=== PATIENT | male | born 1980 | race Caucasian/White ===

== ENCOUNTER 2016-04-14 20:48 | Emergency (ER) | payer BC ==
[2016-04-14 22:00] LABS: ABSOLUTE NEUTROPHIL COUNT 4.2 K/mm3 (1.8-7.7); BASO # 0.1 K/mm3 (0.0-0.2); BASO % 0.6 % (0.2-1.0); EOS # 0.3 (0.0-0.5); EOS % 3.9 % (0.9-2.9); HEMATOCRIT 47.6 % (32.0-52.0); HEMOGLOBIN 16.2 gm/l (14.0-18.0); IMM NEUT # 0.1 K/mm3 (0-0.2); IMM NEUT% 0.6 % (0-1); LYMPH # 3.5 (1.0-4.8); LYMPH % 39.7 % (15-45); MEAN CELL VOLUME 91.2 fl (80.0-94.0); MEAN PLATELET VOLUME 8.5 fl (7.4-10.4); MONO # 0.6 (0.0-0.8); MONO % 7.3 % (4-12); NEUT % 47.9 % (43-75); PLATELET COUNT 259 K/mm3 (130-400); RED CELL DISTRIBUTION WIDTH 12.6 % (11.5-14.5)
[2016-04-14 22:13] LABS: ACETAMINOPHEN < 10 ug/ml; ALB/GLOB RATIO 1.5 (>1.0); ALT/SGPT 28 U/L (7-52); BLOOD UREA NITROGEN 13 mg/dL (7-25); BUN/CREATININE RATIO 16 (6-20); CALCIUM 8.7 mg/dL (8.6-10.3); GLOMERULAR FILTRATION RATE 109 mL/min (60-107)
[2016-04-14 22:35] LABS: URINE BILIRUBIN NEGATIVE (NEGATIVE); URINE BLOOD TRACE (NEGATIVE); URINE GLUCOSE (UA) NEGATIVE (NEGATIVE); URINE LEUKOCYTE ESTERASE NEGATIVE (NEGATIVE); URINE NITRITE NEGATIVE (NEGATIVE); URINE PROTEIN NEGATIVE (NEGATIVE); URINE UROBILINOGEN NORMAL (0-1 mg/dl)
[2016-04-14 22:36] LABS: SALICYLATE < 5 mg/dl (0-30)
[2016-04-14 22:41] LABS: URINE APPEARANCE SL CLOUDY; URINE BACTERIA 0; URINE COLOR YELLOW; URINE EPITHELIAL CELLS 0 /hpf; URINE RBC 0-2 /hpf; URINE WBC NEG /hpf
[2016-04-14 22:55] LABS: AMPHETAMINES/METHAMPHETAMINES NEGATIVE (NEGATIVE); COCAINE NEGATIVE (NEGATIVE); MARIJUANA NEGATIVE (NEGATIVE); METHADONE NEGATIVE (NEGATIVE); OPIATES NEGATIVE (NEGATIVE); TRICYCLIC ANTIDEPRESSANTS NEGATIVE (NEGATIVE)
== END 2016-04-14 22:27 | disposition left against medical advice (07) ==
LOC: ED 20:48
DX: F32.9 Major depressive disorder, single episode, unspecified (principal); T43.221A Poisoning by selective serotonin reuptake inhibitors, accidental (unintentional), initial encounter; T42.6X1A Poisoning by other antiepileptic and sedative-hypnotic drugs, accidental (unintentional), initial encounter; Y92.009 Unspecified place in unspecified non-institutional (private) residence as the place of occurrence of the external cause; Z53.21 Procedure and treatment not carried out due to patient leaving prior to being seen by health care provider

== ENCOUNTER 2016-05-15 16:46 | Emergency (ER) | payer BC ==
[2016-05-15 17:27] LABS: URINE BILIRUBIN NEGATIVE (NEGATIVE); URINE BLOOD 1+ (NEGATIVE); URINE GLUCOSE (UA) NEGATIVE (NEGATIVE); URINE LEUKOCYTE ESTERASE NEGATIVE (NEGATIVE); URINE NITRITE NEGATIVE (NEGATIVE); URINE PROTEIN NEGATIVE (NEGATIVE); URINE UROBILINOGEN NORMAL (0-1 mg/dl)
[2016-05-15 17:28] LABS: URINE APPEARANCE SL CLOUDY; URINE COLOR YELLOW
[2016-05-15 17:34] LABS: URINE BACTERIA RARE; URINE EPITHELIAL CELLS 0-2 /hpf; URINE RBC 0-2 /hpf; URINE WBC NEG /hpf
[2016-05-15 17:46] LABS: ABSOLUTE NEUTROPHIL COUNT 4.9 K/mm3 (1.8-7.7); BASO # 0.1 K/mm3 (0.0-0.2); BASO % 0.6 % (0.2-1.0); EOS # 0.3 (0.0-0.5); EOS % 3.1 % (0.9-2.9); HEMOGLOBIN 15.7 gm/l (14.0-18.0); IMM NEUT% 0.2 % (0-1); LYMPH # 3.8 (1.0-4.8); MEAN CELL VOLUME 90.4 fl (80.0-94.0); MEAN CORPUSCULAR HEMOGLOBIN 30.8 pg (27.0-31.0); MEAN CORPUSCULAR HGB CONC 34.1 g/dl (33.0-37.0); MEAN PLATELET VOLUME 8.7 fl (7.4-10.4); MONO # 0.6 (0.0-0.8); MONO % 6.3 % (4-12); NEUT % 50.8 % (43-75); PLATELET COUNT 248 K/mm3 (130-400); RED CELL DISTRIBUTION WIDTH 12.6 % (11.5-14.5)
--- NOTE | 2016-05-15 18:20 | CT ---
HEAD W/O CON History: Dizziness and forgetfulness for 2 weeks. Comparison: 06/28/2010. Procedure: 1 mm axial images were obtained through the head from the vertex to the base of the skull without intravenous contrast. Stacked reconstructed 5 mm images were then obtained in the axial, coronal and sagittal planes. Findings: The lateral ventricles are of normal size and shape without evidence of hydrocephalus. No evidence of midline shift is seen. No mass or mass-effect is observed. No evidence of intra- or extra-axial fluid collections or hemorrhage is identified. The hernandes/white differentiation is within expected. The basilar cisterns remain uneffaced. The posterior fossa structures are unremarkable. No acute osseous abnormalities are identified. There is note made of mucosal thickening within the visualized ethmoid and sphenoid sinuses. Impression: 1. Ethmoid and sphenoid sinus disease. 2. An otherwise negative unenhanced CT scan of the head.
[2016-05-15 18:40] LABS: ALB/GLOB RATIO 1.4 (>1.0); ALBUMIN 4.2 gm/dL (3.5-5.7); CALCIUM 9.1 mg/dL (8.6-10.3)
== END 2016-05-15 16:51 | disposition home or self-care (01) ==
LOC: ED 16:46
DX: R41.82 Altered mental status, unspecified (principal); F17.210 Nicotine dependence, cigarettes, uncomplicated; F17.220 Nicotine dependence, chewing tobacco, uncomplicated; Z79.899 Other long term (current) drug therapy

== ENCOUNTER 2016-06-10 16:46 | Emergency (ER) | payer BC ==
[2016-06-10] MEDS ORDERED: IBUPROFEN 600 MG TABLET ONE (17:19)
--- NOTE | 2016-06-10 18:04 | RAD ---
HISTORY: Piece of wood fell on right wrist. Right thumb pain. Initial encounter. COMPARISON: None TECHNIQUE: Three views of the right hand FINDINGS: Bones: No fracture or dislocation. Joints: Unremarkable. Soft tissue: Normal. IMPRESSION: No fracture or dislocation. HISTORY: Piece of wood fell onto right wrist. Initial encounter. COMPARISON: None. TECHNIQUE: three view. Wrist Laterality:right FINDINGS: Bones: No fracture or dislocation. Joints: Normal Soft tissue: Normal IMPRESSION: No fracture or dislocation.
== END 2016-06-10 18:42 | disposition home or self-care (01) ==
LOC: ED 16:46
DX: M25.531 Pain in right wrist (principal); F17.210 Nicotine dependence, cigarettes, uncomplicated; F17.220 Nicotine dependence, chewing tobacco, uncomplicated; W20.8XXA Other cause of strike by thrown, projected or falling object, initial encounter; Y92.007 Garden or yard of unspecified non-institutional (private) residence as the place of occurrence of the external cause
CPT/HCPCS: 73130; 73110; 99283 ×2; 29125; A9270